=== PATIENT | female | born 1985 | race Caucasian/White ===

== ENCOUNTER 2024-02-07 21:00 | Inpatient (IN) | payer MEDICAID, OTHER ==
[~2024-02-07] VITALS: Ht 160 cm; Wt 65.8 kg
[~2024-02-07 21:00] MED LIST: IBUP-1636 PO; IRON-15 PO; MULT-1146 PO
[2024-02-07 22:06] LABS: CHLORIDE 104 mEq/L (98-107); POTASSIUM 3.9 mEq/L (3.5-5.1); SODIUM 135 mEq/L (136-145)
[2024-02-07 22:07] LABS: CARBON DIOXIDE 24 mEq/L (21-32)
[2024-02-07 22:12] LABS: CREATININE 0.7 mg/dL (0.6-1.0); GLUCOSE 103 mg/dL (70-105); UREA NITROGEN BLOOD 13 mg/dL (9-23)
[2024-02-07 22:13] LABS: TROPONIN I HIGH SENSITIVITY 17 ng/L (3.0-34)
[2024-02-07 23:26] LABS: HEMATOCRIT. 33.8 % (36.0-48.0); HEMOGLOBIN. 11.6 g/dL (12.0-16.0); MEAN CORPUSCULAR HEMOGLOBIN 27.9 pg (28.0-32.0); MEAN CORPUSCULAR HGB CONC 34.2 g/dL (31.0-37.0); MEAN CORPUSCULAR VOLUME 81.4 fL (81.0-99.0); MEAN PLATELET VOLUME 10.7 fl (7.4-10.4); RED BLOOD CELL COUNT 4.15 mill/uL (4.2-5.4); RED CELL DISTRIBUTION WIDTH 27.3 % (11.6-14.6); WHITE BLOOD COUNT 5.3 x1000/uL (4.5-11.0)
[2024-02-07 23:48] LABS: DIFFERENTIAL COMMENT 1; PLATELET 11 x1000/uL (130-400)
[2024-02-07 23:59] LABS: TROPONIN I HIGH SENSITIVITY 17 ng/L (3.0-34)
[2024-02-08] MEDS: METHYLPREDNISOLONE SOD SUCC 125MG/2ML (ACT-O-VIAL) IV NR (00:35)
[2024-02-08] MEDS: MORPHINE SULFATE 4 MG/ML INJ (FOR IV/IM USE) IV NR (00:36)
[2024-02-08] MEDS: SODIUM CHLORIDE 0.9% 500 ML IV ONE (00:36)
[2024-02-08 01:01] LABS: LACTATE DEHYDROGENASE 438 IU/L (120-246)
[2024-02-08 02:53] LABS: HCG SCREEN NEGATIVE
[2024-02-08] MEDS: IOHEXOL-350 100 ML BOTTLE ONE (03:34)
[2024-02-08 06:41] LABS: ANISOCYTOSIS 3+; PLATELET ESTIMATE MARKEDLY DECREASED
[2024-02-08 09:00] VITALS: BP 129/89; PULSE 73; RESP 20; TEMP 98
[2024-02-08] MEDS ORDERED: ACETAMINOPHEN 325MG TABLET PO PRN (11:00)
[2024-02-08] MEDS ORDERED: ONDANSETRON HCL 4MG/2ML INJ IV PRN (11:00)
[2024-02-08 12:00] VITALS: BP 116/76; PULSE 65; RESP 20; TEMP 97.6
[2024-02-08 16:00] VITALS: BP 119/83; PULSE 80; RESP 20; TEMP 98.6
[2024-02-08 17:33] LABS: CLARITY URINE CLEAR (CLEAR); COLOR URINE YELLOW (YELLOW); GLUCOSE URINE NEGATIVE (NEGATIVE); KETONES URINE NEGATIVE (NEGATIVE); LEUKOCYTE ESTERASE URINE NEGATIVE (NEGATIVE); NITRITE URINE NEGATIVE (NEGATIVE); OCCULT BLOOD URINE 3+ (NEGATIVE); PH URINE 6.5 (4.5-8.0); PROTEIN URINE 1+ (NEGATIVE); SPECIFIC GRAVITY URINE 1.027 (1.005-1.030)
[2024-02-08 17:43] LABS: *AMPHETAMINES SCREEN URINE NEGATIVE (NEGATIVE); *BARBITURATES SCREEN URINE NEGATIVE (NEGATIVE); *BENZODIAZEPINES SCREEN URINE NEGATIVE (NEGATIVE); *COCAINE SCREEN URINE NEGATIVE (NEGATIVE); CANNABINOID URINE SCREEN NEGATIVE (NEGATIVE); ECSTASY MDMA SCREEN URINE NEGATIVE (NEGATIVE); METHADONE URINE SCREEN NEGATIVE (NEGATIVE); OPIATES URINE SCREEN NEGATIVE (NEGATIVE); PHENCYCLIDINE URINE SCREEN NEGATIVE (NEGATIVE)
[2024-02-08 18:12] LABS: BACTERIA URINE 1+; RBC URINE 25-50 /hpf (0-2); SQUAMOUS EPITHELIAL CELL URINE FEW /lpf (RARE/1+); WBC URINE 0-2 /hpf (0-2)
[2024-02-08 20:00] VITALS: BP 122/82; PULSE 82; RESP 18; TEMP 96.8
[2024-02-08] MEDS: CEFTRIAXONE 1GM/50ML 50 ML IV SCH (21:46)
[2024-02-09] VITALS (8 sets, daily range): BP systolic 116–129; BP diastolic 76–89; PULSE 70–93; RESP 19–20; TEMP 97.7–98.6
[2024-02-09] MEDS: HYDROCODONE/ACETAMINOPHEN 5/325MG TABLET PO PRN (04:36)
[2024-02-09 06:36] LABS: INR 0.9; PROTHROMBIN TIME 10.4 sec (9.6-11.0)
[2024-02-09 06:37] LABS: CARBON DIOXIDE 26 mEq/L (21-32); CHLORIDE 103 mEq/L (98-107); POTASSIUM 4.1 mEq/L (3.5-5.1); SODIUM 138 mEq/L (136-145)
[2024-02-09 06:38] LABS: CALCIUM 9.2 mg/dL (8.7-10.4)
[2024-02-09 06:42] LABS: CREATININE 0.6 mg/dL (0.6-1.0); GLUCOSE 103 mg/dL (70-105); IRON 158 ug/dL (50-170)
[2024-02-09 06:43] LABS: UREA NITROGEN BLOOD 16 mg/dL (9-23)
[2024-02-09 06:44] LABS: ALANINE AMINOTRANSFERASE 35 IU/L (10-49); ALBUMIN 4.6 g/dL (3.2-4.8); ASPARTATE AMINOTRANSFERASE 24 IU/L (<34); PROTEIN TOTAL 6.8 g/dL (6.0-8.3)
[2024-02-09 06:45] LABS: BASOPHILS % 0.4 % (0.0-2.0); BILIRUBIN TOTAL 0.4 mg/dL (0.1-1.0); EOSINOPHILS % 0.4 % (0.0-5.0); HEMATOCRIT. 32.4 % (36.0-48.0); HEMOGLOBIN. 10.9 g/dL (12.0-16.0); LYMPHOCYTES % 54.6 % (20.0-50.0); MEAN CORPUSCULAR HEMOGLOBIN 27.6 pg (28.0-32.0); MEAN CORPUSCULAR HGB CONC 33.7 g/dL (31.0-37.0); MEAN CORPUSCULAR VOLUME 81.9 fL (81.0-99.0); NEUTROPHILS % 42.6 % (40.0-76.0); RED BLOOD CELL COUNT 3.96 mill/uL (4.2-5.4); RED CELL DISTRIBUTION WIDTH 27.9 % (11.6-14.6); TOTAL IRON BINDING CAPACITY 337 ug/dl (250-425); WHITE BLOOD COUNT 4.6 x1000/uL (4.5-11.0)
[2024-02-09 06:49] LABS: FERRITIN 120 ng/mL (10-291)
[2024-02-09 06:51] LABS: VITAMIN B12 SERUM 834 pg/mL (211-911)
[2024-02-09 06:59] LABS: DIFFERENTIAL COMMENT 1; PLATELET 9 x1000/uL (130-400)
[2024-02-09 07:01] LABS: ADD RBC MORPHOLOGY YES
[2024-02-09 11:55] LABS: ANISOCYTOSIS 2+; MICROCYTOSIS 1+; PLATELET ESTIMATE MARKEDLY DECREASED
[2024-02-09 12:37] LABS: HEPATITIS B SURFACE ANTIGEN NEGATIVE (Negative)
[2024-02-09 12:58] LABS: HEPATITIS A AB IGM NEGATIVE (Negative); HEPATITIS B CORE AB IGM NEGATIVE (Negative)
[2024-02-09 12:59] LABS: HEPATITIS C AB NON REACTIVE (Neg) (Negative)
[2024-02-09] MEDS ORDERED: NALOXONE HCL 0.4MG/ML VIAL IV PRN (17:00)
[2024-02-09 17:13] LABS: HEMATOCRIT 25.3 % (36.0-48.0); HEMOGLOBIN 8.6 g/dL (12.0-16.0)
[2024-02-09 17:14] LABS: PROTHROMBIN TIME 10.8 sec (9.6-11.0)
[2024-02-10] VITALS (10 sets, daily range): BP systolic 110–143; BP diastolic 50–75; PULSE 64–90; RESP 18–20; TEMP 97.2–98.8; O2SAT 99
[2024-02-10] MEDS ORDERED: CEPH500C2 MT (16:28)
== END 2024-02-10 17:31 | disposition home or self-care (01) | DRG 176 ==
LOC: ER 21:00 → 5WST 02-08 03:06 → EDBEDREQ 02-08 03:28 → EDBEDREQTM 02-08 03:28 → 8WST 02-08 09:19
PROVIDERS: ADMIT Internal Medicine; ATTEND Internal Medicine
PROC: 30233R1 Transfusion of Nonautologous Platelets into Peripheral Vein, Percutaneous Approach (ICD-10-PCS; principal; 2024-02-09)
DX: I26.99 Other pulmonary embolism without acute cor pulmonale (principal); D61.818 Other pancytopenia; K76.9 Liver disease, unspecified; G43.909 Migraine, unspecified, not intractable, without status migrainosus; D50.9 Iron deficiency anemia, unspecified; Z79.899 Other long term (current) drug therapy
CPT/HCPCS: 36415; 71045; 71275; 76700; 80048; 80053; 80305; 81003; 82607; 82728; 82746; 83540; 83550; 83605; 83615; 83880; 84484; 84703; 85014; 85018; 85025; 85044; 85049; 85379; 85384; 86022; 86705; 86709; 86850; 86900; 87077; 87340; 93005; 93970; 99285; J0696; J2270; J2930; P9034; Q9967